=== PATIENT | female | born 1940 | race Caucasian/White ===

== ENCOUNTER 2024-03-11 14:39 | Emergency (ER) | payer OTHER ==
[2024-03-11 14:52] VITALS: BP 136/83; PULSE 78; RESP 20; TEMP 97.8; BMI 20.9
[2024-03-11] MEDS ORDERED: ACETAMINOPHEN 325 MG TABLET (FP) ONE (15:52)
[2024-03-11] MEDS: ACETAMINOPHEN 500 MG TABLET (FP) PO ONE (16:00)
[2024-03-11] MEDS ORDERED: DIPHTH,PERTUSS(ACELL),TET 0.5 ML DISP.SYRIN IM ONE (16:48)
[2024-03-11] MEDS: DIPHTH,PERTUSS(ACELL),TET 0.5 ML DISP.SYRIN IM ONE (17:08)
== END 2024-03-11 19:37 | disposition home or self-care (01) ==
LOC: JER 14:39
PROC: 3E0234Z Introduction of Serum, Toxoid and Vaccine into Muscle, Percutaneous Approach (ICD-10-PCS; principal; 2024-03-11)
DX: S52.501A Unspecified fracture of the lower end of right radius, initial encounter for closed fracture (principal); W10.1XXA Fall (on)(from) sidewalk curb, initial encounter; Y93.01 Activity, walking, marching and hiking; Z23 Encounter for immunization
CPT/HCPCS: 70450-TC; 70486-TC; 71045-TC-FY; 72125-TC; 72170-TC-FY; 73070-TC-RT-FY; 73090-TC-RT-FY; 73130-TC-RT-FY; 73562-TC-LT-FY; 73562-TC-RT-FY; 90471; 90715; 99284-25